=== PATIENT | female | born 2000 | race Caucasian/White ===

== ENCOUNTER 2022-02-11 09:43 | Day surgery (SDC) | payer OTHER ==
[~2022-02-11] VITALS: Ht 170.2 cm; Wt 125.0 kg
[~2022-02-11 09:43] MED LIST: BENZONATATE200 MG PO; ONDANSETRON HCL4 MG PO
--- NOTE | 2022-02-11 12:59 | NUR ---
02/11/22 Virginie9 Regina Henry 1250- PT ARRIVES TO PACU NONAROUSABLE TO STIMULI WITH AN OPA IN PLACE. RESP EVEN AND UNLABORED. OXYGEN SAT HIGH 90'S TO 100% ON 10L VIA MASK. 1257- OXYGEN TITRATED OFF.
[2022-02-11] MEDS ORDERED: OXYCODON-ACETA1 EAC2 PO (13:17)
[2022-02-11] MEDS ORDERED: IBUPROFEN600 MG PO (13:17)
[2022-02-11] MEDS ORDERED: ACETAMINOPHEN500 MG PO (13:18)
--- NOTE | 2022-02-11 13:32 | NUR ---
PT IS BACK TO DS FROM PACU. SHE DENIES ANY PAIN OR NAUSEA. CALL LIGHT WITHIN REACH. TOLERATING SIPS OF WATER. FAMILY IS AT THE BEDSIDE. NO ADDIITONAL NEEDS OR CONCERNS AT THIS TIME. DC CRITERIA IS REVIEWED.
--- NOTE | 2022-02-11 13:58 | NUR ---
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 SHE IS ASSISTED UP OOB WITH STAND BY ASSIST. SHE IS ABLE TO VOID 300MLS. SHE AMBULATES HERSELF BACK TO HER ROOM. SHE TOLERATED THE PUDDING WITHOUT ISSUE. AT THIS TIME THE PT HAS MET ALL DC CRITERIA OTHER THAN STAYING FOR AN HOUR.
--- NOTE | 2022-02-11 14:47 | NUR ---
LE 1430: PT IS DOING WELL. SHE HAS NO COMPLAINTS OF PAIN AT THIS TIME. SHE HAS MET ALL DC CRITERIA. VERBAL AND WRITTEN DC INSTRUCTIONS ARE GIVEN. QUESTIONS ARE ASKED AND ANSWERED. SHE IS EDUCATED ON HOW TO BEST DRESS HERSELF AND TO OPEN HER CURTAIN WHEN SHE IS READY. LE 1440: PT IS TAKEN TO PERSONAL VEHICLE VIA WC. SHE IS ABLE TO TRANSER HERSELF FROM WC TO CAR.
--- NOTE | 2022-02-15 15:42 | PATH ---
[facility] [address] [place] [address] Signed SPECIMEN(S): A LEFT SUPRASPINATUS SPECIMEN(S): B LEFT DELTOID SPECIMEN SOURCE: A. LEFT SUPRASPINATUS B. LEFT DELTOID CLINICAL HISTORY: Soft tissue mass FINAL PATHOLOGIC DIAGNOSIS: A. Left supraspinatus soft-tissue mass: - [place] lobulated adipose tissue, consistent with lipoma. B. Left deltoid: - [facility] intradermal spindle cell neoplasm, excised (free of the peripheral and deep surgical margins by at least 1 mm). - See comment. COMMENT: The bland spindle cell neoplasm has histologic and immunohistochemical features that favor dermatofibroma. JVR:emh:C2NR MICROSCOPIC EXAMINATION: Histologic sections of all submitted blocks are examined by light microscopy. These findings, together with the gross examination, support the pathologic diagnosis. Immunostains are performed, with appropriate controls, on block B1 and show the following: - Cytokeratin AE1/3: Negative in tumor cells. - Melan-A: Negative in tumor cells. - Factor XIII: Generally negative but stains a few tumor cells. - CD34: Negative in tumor cells. - CD10: Positive in tumor cells. - S-100: Negative in tumor cells. JVR:em GROSS DESCRIPTION: Two specimens are received in two containers, labeled "Robyn Mcgregor." A. The specimen, labeled "Robyn Mcgregor," and designated on the requisition "left supraspinatus soft tissue mass," is received in formalin and PATIENT NAME: ROBYN MCGREGOR PATHOLOGY DATE OF : [birth year] REPORT #: [id number] PHYSICIAN: ADILENE ALFONSO PCP: WOO NAVARRO PA-C REPORT IS CONFIDENTIAL AND NOT TO BE RELEASED WITHOUT AUTHORIZATION [facility] [address] [place], [place] [address] Signed consists of a 41 gram portion of yellow-pearl adipose tissue that is 7.5 x 7.0 x 2.4 cm. The specimen is partially surfaced by a transparent membranous tissue. The tissue is inked and serially sectioned to reveal a pale yellow homogeneous cut surface. No areas of hemorrhage or necrosis are grossly identified. [employer] Analyst sections are submitted in cassette (A1-A3). B. The specimen, labeled "Roybn Mcgregor," and designated on the requisition "skin lesion left deltoid," is received in formalin and consists of 2.5 x 1.2 x 0.7 cm unoriented ellipse of skin. The skin surface is pearl and wrinkled with an ill-defined indurated papule that is 0.8 x 0.7 x 0.2 cm. The specimen is inked, sectioned, and entirely submitted in cassette (B1-B2). FB (under the direct supervision of a pathologist) The Gross Description was prepared using a voice recognition system. The report was reviewed for accuracy; however, sound-alike word errors, addition and/or deletions may occur. If there is any question about this report, please contact Client Services. ADDITIONAL NOTES: Immunohistochemical and/or in situ hybridization studies were performed on this case with the appropriate positive controls that react as expected. This test was developed and its performance characteristics determined by [facility]. It has not been cleared or approved by the U.S. Food and Drug Administration. The FDA has determined that such clearance or approval is not necessary. This test is used for clinical purposes. It should not be regarded as investigational or for research. [facility] is certified under the Clinical Laboratory Improvement Amendments of 1988 (CLIA) as qualified to perform high complexity clinical laboratory testing. This assay has not been validated for specimens that have been decalcified. PERFORMING LABORATORY: The technical component was performed by [facility], [address] [place] [id number] (CLIA# [id number]). Professional interpretation was performed by [facility] - [facility], [address] [place] [id number] (CLIA#: [id number]). Diagnostician: Kevin Caldera MD Pathologist Electronically Signed 02/15/2022 PATIENT NAME: ROBYN MCGREGOR PATHOLOGY DATE OF : [birth year] REPORT #: [id number] PHYSICIAN: ADILENE ALFONSO PCP: WOO NAVARRO PA-C REPORT IS CONFIDENTIAL AND NOT TO BE RELEASED WITHOUT AUTHORIZATION [facility] [address] [facility] [place], [place] [address] Signed Copies: ~ PATIENT NAME: ROBYN MCGREGOR PATHOLOGY DATE OF : [birth year] REPORT #: [id number] PHYSICIAN: ADILENE PATHOLOGY PCP: WOO NAVARRO PA-C REPORT IS CONFIDENTIAL AND NOT TO BE RELEASED WITHOUT AUTHORIZATION
--- NOTE | 2022-02-15 17:55 | OR ---
[facility] [place] [facility] [address] [place], [place] [address] Signed DATE OF OPERATION: SURGEON: Maverick Allan MD PREOPERATIVE DIAGNOSES: 1. Morbid obesity, BMI 44.4. 2. Left supraspinatus area soft tissue mass (deep). 3. Left deltoid nodular skin lesion. POSTOPERATIVE DIAGNOSES: 1. Probable multi-lobulated 8 cm supraspinatus subfascial lipoma. 2. Probable dermatofibroma, left deltoid area (3.2 cm excision size). PROCEDURES: 1. Excision of left supraspinatus subfascial perimuscular soft tissue mass with multilayer closure. 2. Excision of left deltoid skin lesion, 3.1 cm. ANESTHESIA: General, LMA; Maverick Garcia CRNA and local 0.25% Marcaine with epinephrine, 21 mL in total. INDICATIONS: This 22-year-old morbidly obese white woman is a patient of SHYANNE Kellogg and was noted to have a soft tissue mass in the left posterior thorax in the supraspinatus area. It is clearly asymmetric from the right side. Palpation shows a high probability of a deep soft tissue mass consistent with lipoma. An ultrasound was performed on December 06, 2021, showing area of concern corresponding to a large benign subcutaneous lipoma at 6 cm in size. Additionally, she does have a nodular lesion of the skin on the left deltoid consistent with dermatofibroma. She is admitted at this time to undergo excision of both lesions. She understands the risks of bleeding, infection, recurrence. FINDINGS: The supraspinatus area soft tissue mass was consistent with multilobulated benign lipoma approximately 8 cm in size. Complete excision was accomplished. It was extending down to and including the fascia of the supraspinatus. Complete excision was accomplished and layered closure undertaken. The skin lesion was separately excised. Full-thickness excision was undertaken 3.1 cm in excision size and closed in layers as well. Electronically Signed By: MAVERICK ALLAN MD 02/15/22 1755 PATIENT NAME: ROBYN MCGREGOR OPERATIVE REPORT DATE OF : [birth year] REPORT #: [id number] PHYSICIAN: MAVERICK ALLAN MD PCP: WOO NAVARRO PA-C REPORT IS CONFIDENTIAL AND NOT TO BE RELEASED WITHOUT AUTHORIZATION [facility] [place] [facility] [address] [place], [place] [address] Signed DESCRIPTION OF PROCEDURE: The patient was brought to the operating room, given a general, LMA type anesthetic. Preoperative antibiotic Ancef was given. Sequential compression device stockings were used. The patient was carefully placed in a lateral decubitus position with left side up. Careful padding of all pressure points including the axillary roll. The left shoulder and posterior thorax were prepared with a chlorhexidine solution and draped sterilely. The palpable mass which had been previously marked was easily discerned and deep within the subcutaneous space. It is notable she is morbidly obese. An incision was made along the line of skin tension generally transversely. Dissection was carried through the subcutaneous tissue with electrocautery encountering ultimately a fascial capsule. With blunt dissection, the well-formed multi-lobulated lipomatous mass was freed from the surrounding subcutaneous tissue. Electrocautery was used for hemostasis. The lesion extended down to and including the fascia of the supraspinatus muscle area. With meticulous care it was dissected free and excised completely. It measured an approximately 8 cm. Layered closure of the wound was indicated. Interrupted 2-0 Vicryl was used in interrupted fashion to close the soft tissue including the deep dermis and a running subcuticular 3-0 Vicryl was used for the skin. Steri-Strips were applied. Attention was turned towards the left deltoid skin lesion. It was a firm rubbery nodule and was non-pigmented. Elliptical excision was undertaken along the line of skin tension over the deltoid with a clinically negative margin. Full-thickness excision was accomplished. The wound edges were freed using electrocautery allowing for mobilization of the skin edges more fully. The wound was closed with interrupted 2-0 Vicryl in deep dermal layer and running subcuticular 3-0 Vicryl for the skin. Steri-Strips were applied to this area as well. Two Acticoat dressings were applied to each site. The patient was ultimately rolled to a supine position, extubated, and transferred to the recovery room in good condition. Blood loss was less than 15 mL in total. Sponge, needle, and instrument counts reported as correct x3. MD PATRICK Ring/MODL /[id number] Electronically Signed By: MAVERICK ALLAN MD 02/15/22 1755 PATIENT NAME: ROBYN MCGREGOR OPERATIVE REPORT DATE OF : [birth year] REPORT #: [id number] PHYSICIAN: MAVERICK ALLAN MD PCP: WOO NAVARRO PA-C REPORT IS CONFIDENTIAL AND NOT TO BE RELEASED WITHOUT AUTHORIZATION [facility] [place] [facility] [address] [facility] [place], [place] [address] Signed cc: SHYANNE Kellogg Copies: ~ Electronically Signed By: MAVERICK ALLAN MD 02/15/22 1755 PATIENT NAME: ROBYN MCGREGOR JILLIAN OPERATIVE REPORT DATE OF : [birth year] REPORT #: [id number] PHYSICIAN: MAVERICK ALLAN MD PCP: WOO NAVARRO PA-C REPORT IS CONFIDENTIAL AND NOT TO BE RELEASED WITHOUT AUTHORIZATION
== END 2022-02-11 14:50 | disposition home or self-care (01) ==
LOC: DS 09:43
PROVIDERS: ATTEND Surgery
PROC: 0KBG0ZZ Excision of Left Trunk Muscle, Open Approach (ICD-10-PCS; principal; 2022-02-11 11:30)
DX: D23.62 Other benign neoplasm of skin of left upper limb, including shoulder (principal); R22.2 Localized swelling, mass and lump, trunk; E66.01 Morbid (severe) obesity due to excess calories; Z68.41 Body mass index [BMI] 40.0-44.9, adult; L98.9 Disorder of the skin and subcutaneous tissue, unspecified
CPT/HCPCS: 00450; J0690; J1100; J1644; J1885; J2250; J2405; J2704; J2765; J3010; J7121

== ENCOUNTER 2022-04-27 12:07 | Emergency (ER) | payer OTHER ==
[~2022-04-27] VITALS: Ht 170.2 cm; Wt 124.7 kg
[~2022-04-27 12:07] MED LIST changes: +ACETAMINOPHEN500 MG PO; +IBUPROFEN600 MG PO; +OXYCODON-ACETA1 EAC2 PO
--- NOTE | 2022-04-28 13:19 | CONS ---
[facility] [address] [place], [place] [address] Signed DATE OF CONSULTATION: 04/27/2022 CHIEF COMPLAINT: First trimester bleeding. HISTORY OF PRESENT ILLNESS: Mrs. Mcgregor is a pleasant 22-year-old, G3, P0, at approximately 10 weeks' gestation by 7-week ultrasound, who presented to the emergency department, complaining of heavy vaginal bleeding. Briefly, the patient with first with ectopic that was treated by methotrexate. She subsequently had an early miscarriage approximately four weeks' gestation that resolved spontaneously. The patient had spotting earlier in the and was treated with RhoGAM due to Rh negative status. Yesterday, she presented with spotting and received second dose of RhoGAM and was instructed to monitor her symptoms closely. This morning, she developed additional bleeding that became quite heavy with significant cramps, and the patient presented to the emergency department. The patient reports no passage of tissue, but the bleeding that was intense at times. The patient is frustrated by her recurrent loss. An ultrasound was performed that demonstrated nonviable 9 weeks' gestation, low in the uterine cavity, possibly high in the cervix. PAST MEDICAL HISTORY: Obesity, history of recurrent loss as above, and history of depression, not on medication. PAST SURGICAL HISTORY: 1. Hemangioma in 2002 and 2021. 2. Bunionectomy of the right foot in 2018. FAMILY HISTORY: Great grandmother with leukemia, breast cancer, and ovarian cancer. Sister with diabetes. SOCIAL HISTORY: The patient does not use tobacco, alcohol, or recreational drugs. ALLERGIES: No known drug allergies. MEDICATIONS: 1. vitamin. 2. Status post RhoGAM yesterday. REVIEW OF SYSTEMS: Electronically Signed By: ARMIN GORE DO (JD) 04/28/22 1319 PATIENT NAME: ROBYN MCGREGOR CONSULTATION DATE OF : [birth year] REPORT #: [id number] PHYSICIAN: ARMIN GORE) PCP: WOO NAVARRO PA-C REPORT IS CONFIDENTIAL AND NOT TO BE RELEASED WITHOUT AUTHORIZATION [facility] [address] [place], [place] [address] Signed A complete review of systems was performed and negative except per HPI. PHYSICAL EXAMINATION: VITAL SIGNS: Temperature 97.9, pulse 96, respiratory rate 20, blood pressure 128 to 155 over 79 to 86. GENERAL: The patient is a healthy adult female, sitting in a hospital gurney with her partner and mother at the bedside. She is understandably grieving, but appears in no acute distress. NECK: Supple. Trachea midline. No lymphadenopathy. No thyromegaly. HEART: Regular rate and rhythm. LUNGS: Clear to auscultation bilaterally. ABDOMEN: Obese, soft, nondistended, nontender. EXTREMITIES: No edema. GENITOURINARY: Pelvic exam was performed with RN auto damage appraiser that shows moderate amount of blood on the inner thighs and vulva. Speculum exam was performed that demonstrates some clot at the vault with a closed cervix. Remainder of the pelvic exam was normal. LABORATORY DATA: WBCs 10.6, hemoglobin 12.2, platelets 308. Sodium 138, potassium 3.5, chloride 103, CO2 of 28, BUN 8, creatinine 0.63, and glucose 108. Quant hCG 15,301. Urine, positive for blood. IMAGING DATA: Transvaginal ultrasound was performed that demonstrates a single intrauterine gestational sac with nonviable measuring 9 weeks and one day. No cardiac activity is identified. Normal ovaries bilaterally. The gestational sac is positioned in the lower portion of the uterus at the level of lower uterine segment/upper endocervical canal and the cervix is shortened consistent with incomplete miscarriage. ASSESSMENT: 1. Incomplete miscarriage. 2. Recurrent loss. 3. Rh negative, status post RhoGAM. PLAN: The patient with incomplete miscarriage and recurrent loss. She is status post RhoGAM yesterday, and I did not believe that a third dose of RhoGAM is indicated at this time. We had a long conversation regarding management, options of incomplete miscarriage. We discussed expectant management, medical management with Cytotec, or surgical management with suction D and C. Risks, benefits, and alternatives of each were discussed in detail. The patient would like to avoid surgery if at all possible and desires medical management with Cytotec. We reviewed medication side effects, administration, and anticipated results in detail. We discussed indications for return to the emergency department for further evaluation and treatment if hemorrhaging. The Electronically Signed By: ARMIN GORE DO (JD) 04/28/22 1319 PATIENT NAME: ROBYN MCGREGOR CONSULTATION DATE OF : [birth year] REPORT #: [id number] PHYSICIAN: ARMIN GORE DO (JD) PCP: WOO NAVARRO PA-C REPORT IS CONFIDENTIAL AND NOT TO BE RELEASED WITHOUT AUTHORIZATION [address] [address] Signed patient will call the office tomorrow morning with an update and instructions for next steps. She desires to follow up with Dr. Riojas in the future. We had a long conversation regarding her obstetric history and prior losses with the first being an ectopic and the second being an early miscarriage. Discussed that she is a candidate for evaluation for recurrent loss, we reviewed that process in detail. Discussed appropriate followup including serial quant hCGs to rule out molar . The patient and family understand and agree with this plan of care. They understand indications to return to the emergency department. All questions were answered to the best of my ability. The patient's apparent satisfaction. A 60 minutes of qualified healthcare provider time were spent today. Armin Gore DO JDW/MODL /[id number] Copies: ~ Electronically Signed By: ARMIN HOLGUIN) DO JOSETTE 04/28/22 1319 PATIENT NAME: ROBYN MCGREGOR CONSULTATION DATE OF : [birth year] REPORT #: [id number] PHYSICIAN: ARMIN GORE DO (JD) PCP: WOO NAVARRO PA-C REPORT IS CONFIDENTIAL AND NOT TO BE RELEASED WITHOUT AUTHORIZATION
== END 2022-04-27 18:22 | disposition home or self-care (01) ==
LOC: ED 12:07
DX: O03.9 Complete or unspecified spontaneous abortion without complication (principal)
CPT/HCPCS: 36415; 76801; 76817; 80048; 81001; 84702; 84703; 85025; 86900; 86901; 99284-25; J7030

== ENCOUNTER 2023-09-10 18:34 | Emergency (ER) | payer OTHER ==
[~2023-09-10] VITALS: Ht 170.2 cm; Wt 110.0 kg
[2023-09-10 19:02] LABS: BASOPHILS 0.6 % (0-2); EOSINOPHILS 1.6 % (0-6); HEMATOCRIT 38.5 % (35.0-50.0); HEMOGLOBIN 12.5 g/dL (12.0-18.0); LYMPHOCYTES 33.1 % (24-44); MCH 27.6 (27-36); MCHC 32.4 g/dl (30-36); MCV 85.3 fl (81-99); MONOCYTES 6.9 % (0-12); NEUTROPHILS 57.8 % (39-80); PLATELET COUNT 261 K/uL (140-440); RBC 4.52 M/ul (4.3-5.7); RDW 15.2 (10.5-15.0)
[2023-09-10 19:14] LABS: ALBUMIN 3.7 g/dL (3.4-5.0); ALKALINE PHOSPHATASE 106 U/L (46-116); ALT (SGPT) 24 U/L (14-59); ANION GAP 11.6 (7-21); AST (SGOT) 29 U/L (15-37); BILIRUBIN, TOTAL 0.3 ng/dL (0.2-1.0); BUN/CREATININE RATIO 16.66 (6.0-28.6); CALCIUM 8.7 mg/dL (8.5-10.1); CARBON DIOXIDE 27 mmol/L (21-32); CHLORIDE 103 mmol/L (98-107); CREATININE, SERUM 0.78 mg/dL (0.55-1.02); GLOMERULAR FILTRATION RATE,EST 108 mL/min (>60); MAGNESIUM 1.9 mg/dL (1.8-2.4); POTASSIUM 3.6 mmol/L (3.5-5.1); PROTEIN, TOTAL 7.4 g/dL (6.4-8.2); UREA NITROGEN 13 mg/dL (7-18)
[2023-09-10] MEDS ORDERED: ONDANSETRON ODT8 MG PO (21:26)
[2023-09-10] MEDS ORDERED: ONDANSETRON 4 MG HOME.PACK SL ONE (21:30)
[2023-09-10] MEDS ORDERED: HYDROCODONE BIT/ACETAMINOPHEN 5/325 MG 1 TAB HOME.PACK PO ONE (21:30)
[2023-09-10 22:02] VITALS: BP 122/81
--- NOTE | 2023-09-10 22:12 | EKG ---
[facility] [address] [facility] [place] [address] Signed Normal sinus rhythm Incomplete right bundle branch block Nonspecific T wave abnormality Abnormal ECG Confirmed by Alexandra Matos MD () on 09/10/2023 10:12:29 PM Electronically Signed By: ALEXANDRA MATOS MD 09/10/232211 PATIENT NAME: ROBYN GUTIERREZ JILLIAN Electrocardiogram DATE OF : [birth year] PHYSICIAN: ALEXANDRA MATOS MD REPORT #: [id number] REPORT IS CONFIDENTIAL AND NOT TO BE RELEASED WITHOUT AUTHORIZATION
== END 2023-09-10 22:02 | disposition home or self-care (01) ==
LOC: ED 18:34
PROVIDERS: Emergency Medicine
DX: K80.70 Calculus of gallbladder and bile duct without cholecystitis without obstruction (principal); Z98.84 Bariatric surgery status
CPT/HCPCS: 36415; 71045; 76705; 80053; 83735; 84484; 85025; 93005; 93010; 99285-25; A9270

== ENCOUNTER 2024-06-11 | Inpatient (IN) | payer OTHER ==
[~2024-06-11] VITALS: Ht 167.6 cm; Wt 113.4 kg
[~2024-06-11] MED LIST changes: +ONDANSETRON ODT8 MG PO
[2024-06-12 00:46] LABS: HEMATOCRIT 34.1 % (35.0-50.0); HEMOGLOBIN 11.6 g/dL (12.0-18.0); MCH 29.1 (27-36); MCHC 34.2 g/dl (30-36); MCV 85.2 fl (81-99); RDW 14.4 (10.5-15.0)
[2024-06-12] MEDS ORDERED: miSOPROStoL 25 MCG TAB PV SCH (01:00)
[2024-06-12] MEDS ORDERED: MAGNESIUM HYDROXIDE/AL HYDROX 30 ML CUP PO PRN (01:00)
[2024-06-12] MEDS ORDERED: CALCIUM CARBONATE 500 MG CHEW PO PRN (01:00)
[2024-06-12] MEDS ORDERED: LACTATED RINGER'S 1,000 ML IV SCH ×2 (01:00→17:44)
[2024-06-12 01:09] LABS: AMPHETAMINES, URINE NEGATIVE (NEGATIVE); BARBITURATES, URINE NEGATIVE (NEGATIVE); BENZODIAZEPINE, URINE NEGATIVE (NEGATIVE); BUPRENORPHINE, URINE NEGATIVE (NEGATIVE); CANNABINOID, URINE NEGATIVE (NEGATIVE); COCAINE, URINE NEGATIVE (NEGATIVE); ECSTASY, URINE NEGATIVE (NEGATIVE); FENTANYL, URINE NEGATIVE (NEGATIVE); METHADONE, URINE NEGATIVE (NEGATIVE); OPIATES, URINE NEGATIVE (NEGATIVE); OXYCODONE, URINE NEGATIVE (NEGATIVE); PHENCYCLIDINE, URINE NEGATIVE (NEGATIVE)
[2024-06-12 01:18] LABS: ABO O; ANTIBODY SCREEN NEGATIVE; RH NEGATIVE
[2024-06-12 01:37] VITALS: BP 132/80
[2024-06-12] MEDS ORDERED: OXYTOCIN/0.9 % SODIUM CHLORIDE 500 ML IV SCH ×2 (09:00→17:45)
[2024-06-12] MEDS ORDERED: fentaNYL citrate 100 MCG/2 ML VIAL IV PRN (09:15)
[2024-06-12] MEDS ORDERED: LACTATED RINGER'S 2,000 ML IV ONE (11:30)
[2024-06-12] MEDS ORDERED: ePHEDrine sulfate 5 MG/ML SYRINGE IV PRN (11:30)
[2024-06-12] MEDS ORDERED: ROPIVACAINE 0.2% 200 ML BAG EPIDURAL SCH (11:30)
[2024-06-12] MEDS ORDERED: LACTATED RINGER'S 500 ML IV PRN (11:30)
[2024-06-12 13:17] LABS: HEMATOCRIT 32.6 % (35.0-50.0); HEMOGLOBIN 10.7 g/dL (12.0-18.0); MCH 28.7 (27-36); MCHC 32.8 g/dl (30-36); MCV 87.4 fl (81-99); RBC 3.73 M/ul (4.3-5.7); RDW 14.4 (10.5-15.0)
[2024-06-12 13:33] LABS: CREATININE, SERUM 0.71 mg/dL (0.55-1.02)
[2024-06-12 13:38] LABS: CREATININE, RANDOM URINE 89.29 mg/dL (NOT ESTABLISHED); PROTEIN/CREATININE RATIO 0.12 mg/mg (0.010-0.107)
[2024-06-12] MEDS ORDERED: AZITHROMYCIN/DEXTROSE 500 MG/250 ML PIGGYBACK IV STA (15:58)
[2024-06-12] MEDS ORDERED: CEFAZOLIN SODIUM 2 GM/20 ML SYR IV SCH (15:59)
[2024-06-12] MEDS ORDERED: SOD+POT BICARB/CITRIC ACID 2 EA TABLET.EFF PO ONE (16:00)
[2024-06-12] MEDS ORDERED: LIDOCAINE 2% W/ EPI 1:200,000 20 ML SDV ONE (16:15)
[2024-06-12] MEDS ORDERED: METOCLOPRAMIDE HCL 10 MG/2 ML SDV ONE (16:27)
[2024-06-12] MEDS ORDERED: ondansetron HCL 4 MG/2 ML VIAL ONE (16:27)
[2024-06-12] MEDS ORDERED: FAMOTIDINE 20 MG/ 2 ML VIAL ONE (16:27)
[2024-06-12] MEDS ORDERED: ePHEDrine sulfate 50 MG/ML AMP ONE (16:27)
[2024-06-12] MEDS ORDERED: DEXAMETHASONE SOD PHOS 4 MG/ML VIAL ONE (16:27)
[2024-06-12] MEDS ORDERED: SODIUM CHLORIDE 0.9% 40 ML IV ONE (16:28)
[2024-06-12] MEDS ORDERED: Ropivacaine HCl 0.5% 30 ML VIAL ONE (16:28)
[2024-06-12] MEDS ORDERED: OXYTOCIN 10 UNITS/ML VIAL ONE (16:28)
[2024-06-12] MEDS ORDERED: PROCHLORPERAZINE EDISYLATE 10 MG/2 ML VIAL ONE (16:30)
[2024-06-12] MEDS ORDERED: MORPHINE SULFATE 1 MG/ML VIAL ONE (16:33)
[2024-06-12] MEDS ORDERED: LACTATED RINGER'S 1,000 ML IV ONE ×3 (16:48)
[2024-06-12] MEDS ORDERED: MORPHINE SULFATE 10 MG/ML VIAL IV PRN (17:30)
[2024-06-12] MEDS ORDERED: IBLOOD GLUCOSE TEST STRIP 1 EA TEST VI PRN (17:30)
[2024-06-12] MEDS ORDERED: fentaNYL citrate 50 MCG/ML SDV IV PRN (17:30)
[2024-06-12] MEDS ORDERED: droPERidol 5 MG/2 ML VIAL IV PRN (17:30)
[2024-06-12] MEDS ORDERED: PROCHLORPERAZINE EDISYLATE 10 MG/2 ML VIAL IV PRN ×3 (17:30→18:00)
[2024-06-12] MEDS ORDERED: ondansetron HCL 4 MG/2 ML VIAL IV PRN ×3 (17:30→18:00)
[2024-06-12] MEDS ORDERED: METOCLOPRAMIDE HCL 10 MG/2 ML SDV IV PRN ×3 (17:30→18:00)
[2024-06-12] MEDS ORDERED: NALOXONE HCL 0.4 MG SYR IV PRN ×2 (17:30→18:00)
[2024-06-12] MEDS ORDERED: OXYCODONE HCL 5 MG TAB PO PRN (17:45)
[2024-06-12] MEDS ORDERED: bisacodyL 10 MG SUPP PR PRN (17:45)
[2024-06-12] MEDS ORDERED: LIDOCAINE 2% VISCOUS 6 ML SYR TOP ONE (17:45)
[2024-06-12] MEDS ORDERED: OXYCODONE/APAP 5/325 TAB PO PRN (17:45)
[2024-06-12] MEDS ORDERED: HYDROCODONE/ACETA 5/325 TAB PO PRN (17:45)
[2024-06-12] MEDS ORDERED: PROMETHAZINE HCL 25 MG TAB PO PRN (17:45)
[2024-06-12] MEDS ORDERED: PROMETHAZINE HCL 25 MG SUPP PR PRN (17:45)
--- NOTE | 2024-06-12 17:51 | NUR ---
06/12/24 1751 Ely Jama LE 1738: PT ARRIVES TO [facility] ROOM 106 FOR PACU RECOVERY. SHE IS AWAKE, NO COMPLAINTS OF PAIN OR NAUSEA. FAMILY IN THE ROOM WITH BABY. LE 1745: HOB ELEVATED SLIGHTLY AT PT REQUEST. LE 1749: BABY TO MOM CHEST WITH [facility] RN ASSIST. PT C/O THE NUMBNESS AND QUESTIONING HOW LONG THAT IS GOING TO LAST - EDUCATED THAT WILL TAKE A WHILE TO RESOLVE.
[2024-06-12 18:00] VITALS: BP 111/60
[2024-06-12] MEDS ORDERED: diphenhydrAMINE HCL 50 MG/ML VIAL IV PRN (18:00)
[2024-06-12] MEDS ORDERED: KETOROLAC TROMETHAMINE 30 MG/ML VIAL IV PRN (18:00)
[2024-06-12] MEDS ORDERED: KETOROLAC TROMETHAMINE 30 MG/ML VIAL IV SCH (18:00)
[2024-06-12] MEDS ORDERED: diphenhydrAMINE HCL 25 MG CAP PO PRN (18:00)
[2024-06-12] MEDS ORDERED: MORPHINE SULFATE 4 MG/ML VIAL IV PRN (18:00)
[2024-06-12] MEDS ORDERED: SENNOSIDES/DOCUSATE 1 EA TAB PO SCH (21:00)
[2024-06-13] MEDS ORDERED: KETOROLAC TROMETHAMINE 30 MG/ML VIAL IV SCH (02:00)
[2024-06-13 05:44] LABS: HEMATOCRIT 31.6 % (35.0-50.0); HEMOGLOBIN 10.5 g/dL (12.0-18.0); MCH 28.9 (27-36); MCHC 33.3 g/dl (30-36); MCV 86.8 fl (81-99); RBC 3.64 M/ul (4.3-5.7); RDW 14.4 (10.5-15.0)
[2024-06-13 06:38] LABS: ABO O; ANTIBODY SCREEN NEGATIVE; FETAL HEMOGLOBIN SCREEN NEGATIVE; RH NEGATIVE
[2024-06-13 06:39] LABS: RHIG DOSE 1; RHIG STATUS CANDIDATE
[2024-06-13 06:47] LABS: RHIG VIAL 1 RG24K02-H
[2024-06-13] MEDS ORDERED: ACETAMINOPHEN 325 MG TAB PO PRN (08:15)
[2024-06-13] MEDS ORDERED: SIMETHICONE 80 MG CHEW PO SCH (11:00)
[2024-06-13] MEDS ORDERED: IBUPROFEN 600 MG TAB PO SCH ×2 (18:00→20:00)
== END 2024-06-14 12:30 | disposition home or self-care (01) | DRG 788 ==
LOC: FBC 06-12 00:02 → MS 06-12 14:13 → FBC 06-12 14:34
PROVIDERS: ADMIT Obstetrics & Gynecology; ATTEND Obstetrics & Gynecology
PROC: 10907ZC Drainage of Amniotic Fluid, Therapeutic from Products of Conception, Via Natural or Artificial Opening (ICD-10-PCS; 2024-06-12)
PROC: 10D00Z1 Extraction of Products of Conception, Low, Open Approach (ICD-10-PCS; principal; 2024-06-12 16:41)
DX: O48.0 Post-term pregnancy (principal); Z3A.40 40 weeks gestation of pregnancy; Z37.0 Single live birth; O76 Abnormality in fetal heart rate and rhythm complicating labor and delivery; O69.81X0 Labor and delivery complicated by cord around neck, without compression, not applicable or unspecified; O77.0 Labor and delivery complicated by meconium in amniotic fluid; O99.214 Obesity complicating childbirth; Z79.82 Long term (current) use of aspirin; Z79.899 Other long term (current) drug therapy
CPT/HCPCS: 01961; 36415; 64488; 76942; 80307; 82565; 82570; 82803; 83030; 84156; 84450; 84520; 84550; 85027; 86850; 86900; 86901; A9270; J0456; J0690; J0780; J1100; J1885; J2274; J2405; J2590; J2765; J2790; J2795; J7121